=== PATIENT | female | born 1970 | race Caucasian/White ===

== ENCOUNTER → 2017-03-03 | Outpatient (CLI) | payer MEDICAID ==
[~2017-03-03] MED LIST: ALBUTEROL0.83 MG/ML IH; BUSPAR10 MG PO; CELEBREX 200MG200 MG PO; CELEBREX50 MG PO; COUMADIN 5MG5 MG/TAB PO; FLONASE NASAL S16 GM NS; JANUVIA 100MG100 MG PO; KEPPRA 500MG500 MG PO; LIPITOR20 MG PO; LUNESTA2 MG PO; LUNESTA3 MG PO; NEURONTIN300 MG/CAP PO; NORCO 325 MG-51 TAB PO; PEPCID 20MG TAB20 MG PO; PHENERGAN 25 TA25 MG PO; PLAVIX 75MG TAB75 MG PO; PROZAC 20MG20 MG PO; RT ADVAIR 128 DISKUS IH; VENTOLIN0.09 MG IH; XODOL PO; ZITHROMAX 250M250 MG PO; ZOCOR 40MG40 MG PO
== END ==
LOC: COL.RAD 13:14
DX: Z95.828 Presence of other vascular implants and grafts (principal)

== ENCOUNTER 2017-03-21 07:20 | Day surgery (SDC) | payer MEDICAID ==
[~2017-03-21] VITALS: Ht 165.1 cm; Wt 63.8 kg
[2017-03-21 08:02] VITALS: BP 137/82; PULSE 81; TEMP 97.3
[2017-03-21] MEDS ORDERED: ABILIFY 15MG TA15 MG PO (08:32)
[2017-03-21] MEDS ORDERED: KLONOPIN 0.5MG0.5 MG PO (08:32)
[2017-03-21] MEDS ORDERED: SEROQUEL 1100 MG/TAB PO (08:33)
[2017-03-21] MEDS ORDERED: CELEXA 20MG20 MG/TAB PO (08:33)
[2017-03-21] MEDS ORDERED: VENTOLIN0.09 MG IH (08:34)
[2017-03-21] MEDS ORDERED: FLOVENT DI50 MCG/Act IH (08:35)
[2017-03-21] MEDS ORDERED: EPIPEN 2-PAK1 MG/ML IM (08:35)
[2017-03-21] MEDS ORDERED: FLEXERIL 1010 MG/TAB PO (08:36)
[2017-03-21] MEDS ORDERED: RT ADVAIR 128 DISKUS IH (08:37)
[2017-03-21] MEDS ORDERED: KEPPRA 500MG500 MG PO (08:38)
[2017-03-21] MEDS ORDERED: MELATONIN5 M1 SL (08:39)
[2017-03-21] MEDS ORDERED: COUMADIN 5MG5 MG/TAB PO (08:40)
[2017-03-21] MEDS ORDERED: COUMADIN 77.5 MG/TAB PO (08:41)
[2017-03-21] MEDS ORDERED: LEVSIN0.125 M1 PO (08:42)
[2017-03-21] MEDS ORDERED: DEPAKOTE ER 50500 MG PO (08:42)
[2017-03-21] MEDS ORDERED: ZOCOR 40MG40 MG PO (08:43)
[2017-03-21] MEDS ORDERED: ZYRTEC ALLERGY10 MG PO (08:44)
[2017-03-21] MEDS ORDERED: ZOFRAN 4MG T4 MG/TAB PO (08:45)
[2017-03-21] MEDS ORDERED: LUNESTA3 MG PO (08:45)
[2017-03-21] MEDS ORDERED: REMERON 15M15 MG/TA1 PO (08:45)
[2017-03-21] MEDS ORDERED: JANUVIA 100MG100 MG PO (08:46)
[2017-03-21] MEDS ORDERED: LYRICA 75MG CAP75 MG PO (08:47)
[2017-03-21] MEDS ORDERED: PRINZIDE 25 MG-1 TAB PO (08:47)
[2017-03-21] MEDS ORDERED: VICTOZA6 MG/ML SQ (08:48)
[2017-03-21] MEDS ORDERED: FLECTOR1.3% TOP (08:49)
[2017-03-21] MEDS ORDERED: LANTUS100 U/ML SQ (08:49)
[2017-03-21 09:34] VITALS: BP 120/68; PULSE 86
[2017-03-21 09:50] VITALS: BP 125/69; PULSE 88
[2017-03-21 10:05] VITALS: BP 133/73; PULSE 76
[2017-03-21 10:20] VITALS: BP 123/71; PULSE 86
[2017-03-21] MEDS ORDERED: NORCO 325 MG-51 TAB PO (10:42)
[2017-03-21 10:50] VITALS: BP 131/78; PULSE 71
== END 2017-03-21 11:00 | disposition home or self-care (01) ==
LOC: SDCO 07:20
DX: T82.594A Other mechanical complication of infusion catheter, initial encounter (principal); E11.40 Type 2 diabetes mellitus with diabetic neuropathy, unspecified; F32.9 Major depressive disorder, single episode, unspecified; J43.9 Emphysema, unspecified; I25.2 Old myocardial infarction; I10 Essential (primary) hypertension; G47.00 Insomnia, unspecified; F17.210 Nicotine dependence, cigarettes, uncomplicated; Z79.4 Long term (current) use of insulin; Z79.52 Long term (current) use of systemic steroids; Z79.01 Long term (current) use of anticoagulants; Z88.0 Allergy status to penicillin; Z88.6 Allergy status to analgesic agent; Z91.041 Radiographic dye allergy status; Z90.49 Acquired absence of other specified parts of digestive tract; Z90.710 Acquired absence of both cervix and uterus; Z86.73 Personal history of transient ischemic attack (TIA), and cerebral infarction without residual deficits
CPT/HCPCS: C1788; J0690; J1644; J2250; J2704; J7030

== ENCOUNTER → 2017-05-08 | Outpatient (CLI) | payer MEDICAID ==
[~2017-05-08] MED LIST changes: +ABILIFY 15MG TA15 MG PO; +CELEXA 20MG20 MG/TAB PO; +COUMADIN 77.5 MG/TAB PO; +DEPAKOTE ER 50500 MG PO; +EPIPEN 2-PAK1 MG/ML IM; +FLECTOR1.3% TOP; +FLEXERIL 1010 MG/TAB PO; +FLOVENT DI50 MCG/Act IH; +KLONOPIN 0.5MG0.5 MG PO; +LANTUS100 U/ML SQ; +LEVSIN0.125 M1 PO; +LYRICA 75MG CAP75 MG PO; +MELATONIN5 M1 SL; +PRINZIDE 25 MG-1 TAB PO; +REMERON 15M15 MG/TA1 PO; +SEROQUEL 1100 MG/TAB PO; +VICTOZA6 MG/ML SQ; +ZOFRAN 4MG T4 MG/TAB PO; +ZYRTEC ALLERGY10 MG PO
== END ==
LOC: MHCPAIN 15:07
DX: G89.29 Other chronic pain (principal); M79.2 Neuralgia and neuritis, unspecified; M79.1 Myalgia
CPT/HCPCS: G0463